=== PATIENT | female | born 1950 | race Caucasian/White ===

== ENCOUNTER 2018-02-22 06:03 | Inpatient (IN) | payer MEDICARE, MEDICAID ==
[2018-02-17 11:15] LABS: BASOPHILS % (AUTO) 0.6 % (0-1); EOSINOPHILS # (AUTO) 0.6 X10'3 (0-0.9); EOSINOPHILS % (AUTO) 8.8 % (0-6); LYMPHOCYTES # (AUTO) 2.4 X10'3 (1.1-4.8); LYMPHOCYTES % (AUTO) 33.3 % (21-51); MEAN CORPUSCULAR HGB CONC 34.1 % (33.0-36.5); MEAN CORPUSCULAR VOLUME 84.9 FL (78-98); MEAN PLATELET VOLUME 8.9 FL (7.4-10.4); MONOCYTES # (AUTO) 0.6 X10'3 (0-0.9); MONOCYTES % (AUTO) 8.6 % (2-12); NEUTROPHILS # (AUTO) 3.6 X10'3 (1.8-7.7); NEUTROPHILS % (AUTO) 48.7 % (42-75); PRE OP HEMATOCRIT 38.9 % (35.0-45.0); PRE OP HEMOGLOBIN 13.3 g/dL (12.0-16.0); PRE OP PLATELET COUNT 242 X10'3 (140-440); RED BLOOD COUNT 4.57 X10'6 (4.20-5.60); RED CELL DISTRIBUTION WIDTH 16.2 % (11.5-14.5)
[2018-02-17 11:24] LABS: PRE OP INR 0.9 INR; PRE OP PROTIME 9.7 SECONDS (9.0-12.0)
[2018-02-17 11:28] LABS: ALBUMIN 3.4 G/DL (3.4-5.0); ALBUMIN/GLOBULIN RATIO 0.9 (1.1-1.5); ALKALINE PHOSPHATASE 105 IU/L (46-116); BLOOD UREA NITROGEN 22 MG/DL (7-18); BUN/CREATININE RATIO 23.2 (6.6-38.0); CALCIUM 9.1 MG/DL (8.5-10.1); CHLORIDE 104 MMOL/L (99-107); CREATININE 0.95 MG/DL (0.40-0.90); HEMOGLOBIN A1C 6.4 % (4.5-6.2); PRE OP ALT 22 U/L (30-65); PRE OP ANION GAP 6 (8-16); PRE OP AST 18 U/L (10-37); PRE OP BILIRUB, TOTAL 0.5 MG/DL (0.0-1.0); PRE OP GLUCOSE 117 MG/DL (70-104); PRE OP POTASSIUM 4.4 MMOL/L (3.4-5.1); PRE OP SODIUM 141 MMOL/L (135-145); TOTAL CARBON DIOXIDE 30.6 MMOL/L (24-32); TOTAL PROTEIN 7.3 G/DL (6.4-8.2); eGFR 59 ML/MIN
[~2018-02-22] VITALS: Ht 170.2 cm; Wt 124.4 kg
[2018-02-22] VITALS (22 sets, daily range): BP systolic 104–157; BP diastolic 47–87
[~2018-02-22 06:03] MED LIST: ARIP5TAB4 PO; ATOR40TA PO; CELE-193 PO; DULO-31 PO; FERR324T4 PO; GABA-532 PO; LISI40TA4 PO; LOSA25TA96 PO; METF500T7 PO; OMEP20TA5 PO; acetaminophen 325mg tablet PO ONE; clindamycin-Cleocin 900mg/D5W 50 ML IV ONE; famotidine 20mg tablet PO ONE; gabapentin 300mg capsule PO ONE; metoclopramide 5 mg/ml inj IV ONE; oxyCODONE SR 10mg (sust. release) tab PO ONE; ringers solution, lacted 1,000 ML IV SCH; tranexamic acid inj. 1,000 MG in normal saline 100ml IV soln 90 ML IV ONE; vancomycin inj 1,500 MG in normal saline 300ml IV soln IV ONE
[2018-02-22] MEDS ORDERED: LIDOcaine 1% (10mg/ml) 2ml vial ONE (06:22)
[2018-02-22] MEDS ORDERED: ceFAZolin 1000mg inj ONE (07:31)
[2018-02-22] MEDS ORDERED: ketorolac trometh. 30mg/ml inj. ONE (07:31)
[2018-02-22] MEDS ORDERED: ROPIVAcaine 0.5% (5mg/ml) 30ml vial ONE ×2 (07:31→09:19)
[2018-02-22] MEDS ORDERED: Thrombin (Bovine) 5,000 unit vial TP ONE (07:31)
[2018-02-22] MEDS ORDERED: morphine 10mg/ml inj. ONE (07:31)
[2018-02-22] MEDS ORDERED: vancomycin 1,000mg inj ONE (07:33)
[2018-02-22] MEDS ORDERED: cloNIDine hcl/PF 100mcg/ml inj ONE (08:23)
[2018-02-22] MEDS ORDERED: midazolam 2 mg/2 ml injection ONE (08:27)
[2018-02-22] MEDS ORDERED: fentaNYL /PF 50mcg/ml 5ml ampule ONE (08:27)
[2018-02-22] MEDS ORDERED: propofol inj 20 ML IV ONE (08:30)
[2018-02-22] MEDS ORDERED: LIDOcaine 2% (20mg/ml) 5ml vial ONE (08:30)
[2018-02-22] MEDS ORDERED: rocuronium 10mg/ml inj IV ONE (08:30)
[2018-02-22] MEDS ORDERED: sevoflurane 250ml liquid IH ONE (08:41)
[2018-02-22] MEDS ORDERED: ondansetron/PF 4mg/2ml inj ONE (08:41)
[2018-02-22] MEDS ORDERED: calcium chloride 100 MG/1 ML inj IV ONE (09:29)
[2018-02-22] MEDS ORDERED: hydrALAZINE 20mg/ml inj. IV ONE (09:48)
[2018-02-22] MEDS ORDERED: ePHEDrine 50MG/ML INJ. ONE (09:48)
[2018-02-22] MEDS ORDERED: phenylephrine 10mg/ml inj. ONE (09:48)
[2018-02-22] MEDS ORDERED: ringers solution, lacted 1,000 ML IV SCH (09:58)
[2018-02-22] MEDS ORDERED: ondansetron/PF 4mg/2ml inj IV PRN ×2 (10:00→11:45)
[2018-02-22] MEDS ORDERED: morphine 4 MG/ML inj SYRINge IV PRN ×2 (10:00)
[2018-02-22] MEDS ORDERED: meperidine/PF 25mg/ml syringe IV PRN ×2 (10:00)
[2018-02-22] MEDS ORDERED: proCHLORperazine 10 MG/2 ml inj IV PRN (10:00)
[2018-02-22] MEDS ORDERED: dexamethasone sod phosphate 4mg/ml inj. ONE (10:03)
[2018-02-22] MEDS ORDERED: fentaNYL/PF 50MCG/1 ML 2ML syringe ONE (10:27)
[2018-02-22] MEDS ORDERED: glycopyrrolate 0.2mg/ml inj ONE (10:58)
[2018-02-22] MEDS ORDERED: neostigmine methylsulfate 1 MG/ML 10ml vial ONE (10:58)
[2018-02-22] MEDS ORDERED: labetalol 5mg/ml 20ml inj. IV ONE (11:42)
[2018-02-22] MEDS ORDERED: diphenhydrAMINE 25mg capsule PO PRN ×2 (11:45)
[2018-02-22] MEDS ORDERED: [UNRECOGNIZED DRUG - OTHER] IV PRN (11:45)
[2018-02-22] MEDS ORDERED: acetaminophen 325mg tablet PO PRN (11:45)
[2018-02-22] MEDS ORDERED: bisacodyl 10mg suppository rectal RC PRN (11:45)
[2018-02-22] MEDS ORDERED: magnesium hydroxide 30ml (MOM) UD suspension PO PRN (11:45)
[2018-02-22] MEDS ORDERED: HYDROmorphone 1 mg/ml syringe IV PRN (11:45)
[2018-02-22] MEDS ORDERED: oxyCODONE IR 5mg (immed. release) tablet PO PRN (11:45)
[2018-02-22] MEDS: meperidine/PF 25mg/ml syringe IV PRN ×2 (12:39→12:59)
[2018-02-22] MEDS: clindamycin 600mg/D5W 50ml 50 ML IV SCH ×2 (14:29→20:06)
[2018-02-22] MEDS: acetaminophen 325mg tablet PO SCH ×3 (14:31→20:04)
[2018-02-22] MEDS: gabapentin 300mg capsule PO SCH ×3 (14:31→20:09)
[2018-02-22] MEDS: potassium cl 20mEq in 1/2 NS 1,000 ML IV SCH ×2 (14:31→19:43)
[2018-02-22] MEDS ORDERED: NORMAL SALINE IV ONE (15:00)
[2018-02-22] MEDS ORDERED: TRANEXAMIC ACID IV ONE (15:00)
[2018-02-22] MEDS: oxyCODONE IR 5mg (immed. release) tablet PO PRN (17:36)
[2018-02-22] MEDS: ferrous sulfate 325mg tablet PO SCH (18:00)
[2018-02-22] MEDS ORDERED: gabapentin 300mg capsule PO SCH (20:00)
[2018-02-22] MEDS: lisinopril 10 MG tablet PO SCH (20:00)
[2018-02-22] MEDS ORDERED: vancomycin/NS 1 GM ADD-VANTAGE 250 ML IV SCH (20:00)
[2018-02-22] MEDS: metFORMIN 500mg tablet PO SCH (20:04)
[2018-02-22] MEDS: duloxetine 30mg CAPSULE.DR PO SCH (20:04)
[2018-02-22] MEDS: losartan 25mg tablet PO SCH (20:04)
[2018-02-22] MEDS: sennosides 8.6mg tablet PO SCH (20:09)
[2018-02-22] MEDS ORDERED: magnesium oxide 400mg tablet PO PRN (21:10)
[2018-02-23] MEDS: oxyCODONE IR 5mg (immed. release) tablet PO PRN ×6 (00:56→21:26)
[2018-02-23 01:59] VITALS: BP 123/59
[2018-02-23] MEDS: potassium cl 20mEq in 1/2 NS 1,000 ML IV SCH ×3 (04:09→21:26)
[2018-02-23] MEDS: clindamycin 600mg/D5W 50ml 50 ML IV SCH (04:18)
[2018-02-23] MEDS: acetaminophen 325mg tablet PO SCH ×4 (04:18→21:03)
[2018-02-23 05:51] LABS: BASOPHILS % (AUTO) 0.3 % (0-1); EOSINOPHILS # (AUTO) 0.1 X10'3 (0-0.9); EOSINOPHILS % (AUTO) 1.5 % (0-6); HEMATOCRIT 32.6 % (35.0-45.0); HEMOGLOBIN 10.8 g/dl (12.0-16.0); LYMPHOCYTES # (AUTO) 1.7 X10'3 (1.1-4.8); LYMPHOCYTES % (AUTO) 18.3 % (21-51); MEAN CORPUSCULAR HEMOGLOBIN 28.6 PG (27.0-31.0); MEAN CORPUSCULAR HGB CONC 33.2 % (33.0-36.5); MEAN CORPUSCULAR VOLUME 86.3 FL (78-98); MEAN PLATELET VOLUME 8.9 FL (7.4-10.4); MONOCYTES # (AUTO) 1.4 X10'3 (0-0.9); MONOCYTES % (AUTO) 14.3 % (2-12); NEUTROPHILS # (AUTO) 6.2 X10'3 (1.8-7.7); NEUTROPHILS % (AUTO) 65.6 % (42-75); PLATELET COUNT 209 X10'3 (140-440); RED BLOOD COUNT 3.78 X10'6 (4.20-5.60); RED CELL DISTRIBUTION WIDTH 16.3 % (11.5-14.5); WHITE BLOOD COUNT 9.4 X10'3 (4.5-11.0)
[2018-02-23 05:53] LABS: ANION GAP 4 (8-16); CHLORIDE 106 MMOL/L (99-107); POTASSIUM 4.8 MMOL/L (3.5-5.1); SODIUM 141 MMOL/L (135-145); TOTAL CARBON DIOXIDE 31.2 MMOL/L (24-32)
[2018-02-23 06:00] VITALS: BP 136/56
[2018-02-23 08:34] LABS: ALANINE AMINOTRANSFERASE 27 U/L (12-78); ALBUMIN 2.6 G/DL (3.4-5.0); ALBUMIN/GLOBULIN RATIO 0.8 (1.1-1.5); ALKALINE PHOSPHATASE 74 IU/L (46-116); BILIRUBIN,TOTAL 0.5 MG/DL (0.1-1.0); BLOOD UREA NITROGEN 14 MG/DL (7-18); BUN/CREATININE RATIO 15.9 (6.6-38.0); CALCIUM 8.1 MG/DL (8.5-10.1); CREATININE 0.88 MG/DL (0.40-0.90); GLUCOSE 130 MG/DL (70-104); MAGNESIUM 2.1 MG/DL (1.5-2.4); eGFR 64 ML/MIN
[2018-02-23] MEDS: pantoprazole 40mg Tablet.DR PO SCH (08:35)
[2018-02-23] MEDS: metFORMIN 500mg tablet PO SCH ×2 (08:35→21:02)
[2018-02-23] MEDS: aripiprazole 5mg tablet PO SCH (08:35)
[2018-02-23] MEDS: duloxetine 30mg CAPSULE.DR PO SCH ×2 (08:35→21:02)
[2018-02-23] MEDS: losartan 25mg tablet PO SCH ×2 (08:35→21:01)
[2018-02-23] MEDS: lisinopril 10 MG tablet PO SCH ×2 (08:37→21:03)
[2018-02-23] MEDS: atorvastatin 10mg tablet PO SCH (08:37)
[2018-02-23] MEDS: gabapentin 300mg capsule PO SCH ×3 (08:37→21:02)
[2018-02-23] MEDS: enoxaparin 40mg/0.4ml syringe SQ SCH (08:38)
[2018-02-23 08:42] LABS: ASPARTATE AMINO TRANSFERASE 26 U/L (10-37)
[2018-02-23] MEDS: ferrous sulfate 325mg tablet PO SCH ×3 (08:52→17:39)
[2018-02-23 10:00] VITALS: BP 130/64
[2018-02-23 16:00] VITALS: BP 119/39
[2018-02-23 18:00] VITALS: BP 126/36
[2018-02-23] MEDS: celeCOXIB 100mg capsule PO SCH (21:02)
[2018-02-23] MEDS: sennosides 8.6mg tablet PO SCH (21:02)
[2018-02-23 22:00] VITALS: BP 158/61
[2018-02-24] MEDS: acetaminophen 325mg tablet PO SCH ×2 (02:00→08:11)
[2018-02-24] MEDS: potassium cl 20mEq in 1/2 NS 1,000 ML IV SCH (03:43)
[2018-02-24] MEDS: oxyCODONE IR 5mg (immed. release) tablet PO PRN ×3 (03:51→20:21)
[2018-02-24 06:00] VITALS: BP 111/47
[2018-02-24 08:08] LABS: HEMATOCRIT 31.1 % (35.0-45.0); HEMOGLOBIN 10.3 g/dl (12.0-16.0); RED BLOOD COUNT 3.59 X10'6 (4.20-5.60); WHITE BLOOD COUNT 11.6 X10'3 (4.5-11.0)
[2018-02-24 08:09] LABS: BASOPHILS # (AUTO) 0.1 X10'3 (0-0.2); BASOPHILS % (AUTO) 0.5 % (0-1); EOSINOPHILS # (AUTO) 0.4 X10'3 (0-0.9); EOSINOPHILS % (AUTO) 3.8 % (0-6); LYMPHOCYTES # (AUTO) 1.9 X10'3 (1.1-4.8); LYMPHOCYTES % (AUTO) 16.7 % (21-51); MEAN CORPUSCULAR HEMOGLOBIN 28.8 PG (27.0-31.0); MEAN CORPUSCULAR HGB CONC 33.3 % (33.0-36.5); MEAN CORPUSCULAR VOLUME 86.6 FL (78-98); MEAN PLATELET VOLUME 9.2 FL (7.4-10.4); MONOCYTES # (AUTO) 1.6 X10'3 (0-0.9); MONOCYTES % (AUTO) 13.6 % (2-12); NEUTROPHILS # (AUTO) 7.6 X10'3 (1.8-7.7); NEUTROPHILS % (AUTO) 65.4 % (42-75); PLATELET COUNT 197 X10'3 (140-440); RED CELL DISTRIBUTION WIDTH 16.3 % (11.5-14.5)
[2018-02-24] MEDS: metFORMIN 500mg tablet PO SCH ×2 (08:10→20:23)
[2018-02-24] MEDS: gabapentin 300mg capsule PO SCH ×3 (08:10→20:23)
[2018-02-24] MEDS: aripiprazole 5mg tablet PO SCH (08:10)
[2018-02-24] MEDS: pantoprazole 40mg Tablet.DR PO SCH (08:10)
[2018-02-24] MEDS: atorvastatin 10mg tablet PO SCH (08:11)
[2018-02-24] MEDS: duloxetine 30mg CAPSULE.DR PO SCH ×2 (08:11→20:23)
[2018-02-24] MEDS: ferrous sulfate 325mg tablet PO SCH ×3 (08:11→19:02)
[2018-02-24] MEDS: lisinopril 10 MG tablet PO SCH ×2 (08:11→20:23)
[2018-02-24] MEDS: celeCOXIB 100mg capsule PO SCH ×2 (08:11→20:23)
[2018-02-24] MEDS: losartan 25mg tablet PO SCH ×2 (08:11→20:23)
[2018-02-24] MEDS: enoxaparin 40mg/0.4ml syringe SQ SCH (08:14)
[2018-02-24 10:00] VITALS: BP 113/29
[2018-02-24] MEDS ORDERED: acetaminophen 325mg tablet PO PRN (11:45)
[2018-02-24 14:39] VITALS: BP 110/60
[2018-02-24 16:09] LABS: CLARITY,URINE Clear (Clear); COLOR,URINE Yellow (Yellow); GLUCOSE, URINE Negative (Neg); KETONES,URINE Negative (Neg); LEUKOCYTE ESTERASE ,URINE Moderate (Neg); NITRITES, URINE Negative (Neg); OCCULT BLOOD,URINE Negative (Neg); PH,URINE 5.5 (4.8-8.0); PROTEIN,URINE Negative (Neg); UROBILINOGEN,URINE 0.2 E.U/dL (0.2-1.0)
[2018-02-24 16:15] LABS: UA COLLECTION TYPE NON-SPECIFIED
[2018-02-24 16:20] LABS: BACTERIA,URINE 1+ /HPF (Neg); MUCUS STRANDS FEW /LPF (Neg); RBC,URINE NONE SEEN /HPF (0-2); SQUAMOUS EPITHELIAL CELL,UR FEW /LPF (FEW); WBC CLUMPS,URINE FEW /HPF (NEGATIVE); YEAST FEW /HPF (NEGATIVE)
[2018-02-24 18:00] VITALS: BP 142/47
[2018-02-24 19:30] VITALS: BP 139/53
[2018-02-24] MEDS: sennosides 8.6mg tablet PO SCH (20:22)
[2018-02-24 22:00] VITALS: BP 108/48
[2018-02-24] MEDS: levoFLOXACIN 500mg tablet PO SCH (23:21)
[2018-02-25 05:54] LABS: BASOPHILS # (AUTO) 0.1 X10'3 (0-0.2); BASOPHILS % (AUTO) 0.8 % (0-1); EOSINOPHILS # (AUTO) 0.4 X10'3 (0-0.9); EOSINOPHILS % (AUTO) 3.9 % (0-6); HEMATOCRIT 33.3 % (35.0-45.0); HEMOGLOBIN 11.1 g/dl (12.0-16.0); LYMPHOCYTES # (AUTO) 1.3 X10'3 (1.1-4.8); LYMPHOCYTES % (AUTO) 11.5 % (21-51); MEAN CORPUSCULAR HEMOGLOBIN 28.9 PG (27.0-31.0); MEAN CORPUSCULAR HGB CONC 33.3 % (33.0-36.5); MEAN CORPUSCULAR VOLUME 86.8 FL (78-98); MEAN PLATELET VOLUME 9.9 FL (7.4-10.4); MONOCYTES # (AUTO) 1.3 X10'3 (0-0.9); MONOCYTES % (AUTO) 11.8 % (2-12); NEUTROPHILS # (AUTO) 8.2 X10'3 (1.8-7.7); PLATELET COUNT 217 X10'3 (140-440); RED BLOOD COUNT 3.84 X10'6 (4.20-5.60); RED CELL DISTRIBUTION WIDTH 16.5 % (11.5-14.5); WHITE BLOOD COUNT 11.3 X10'3 (4.5-11.0)
[2018-02-25 06:00] VITALS: BP 88/64
[2018-02-25] MEDS: oxyCODONE IR 5mg (immed. release) tablet PO PRN (06:07)
[2018-02-25] MEDS: atorvastatin 10mg tablet PO SCH (08:17)
[2018-02-25] MEDS: duloxetine 30mg CAPSULE.DR PO SCH (08:17)
[2018-02-25] MEDS: losartan 25mg tablet PO SCH (08:17)
[2018-02-25] MEDS: celeCOXIB 100mg capsule PO SCH (08:17)
[2018-02-25] MEDS: enoxaparin 40mg/0.4ml syringe SQ SCH (08:17)
[2018-02-25] MEDS: pantoprazole 40mg Tablet.DR PO SCH (08:17)
[2018-02-25] MEDS: gabapentin 300mg capsule PO SCH (08:17)
[2018-02-25] MEDS: aripiprazole 5mg tablet PO SCH (08:17)
[2018-02-25] MEDS: lisinopril 10 MG tablet PO SCH (08:18)
[2018-02-25] MEDS: ferrous sulfate 325mg tablet PO SCH (08:18)
[2018-02-25] MEDS: metFORMIN 500mg tablet PO SCH (08:18)
[2018-02-25 10:00] VITALS: BP 123/19
[2018-02-25 10:15] VITALS: BP 105/70
[2018-02-25] MEDS: levoFLOXACIN 500mg tablet PO SCH (10:34)
[2018-02-25 11:15] LABS: ALANINE AMINOTRANSFERASE 28 U/L (12-78); ALBUMIN 2.3 G/DL (3.4-5.0); ALBUMIN/GLOBULIN RATIO 0.5 (1.1-1.5); ALKALINE PHOSPHATASE 86 IU/L (46-116); ANION GAP 9 (8-16); ASPARTATE AMINO TRANSFERASE 24 U/L (10-37); BILIRUBIN,TOTAL 0.7 MG/DL (0.1-1.0); BLOOD UREA NITROGEN 14 MG/DL (7-18); BUN/CREATININE RATIO 13.5 (6.6-38.0); CALCIUM 8.5 MG/DL (8.5-10.1); CHLORIDE 101 MMOL/L (99-107); CREATININE 1.04 MG/DL (0.40-0.90); GLUCOSE 121 MG/DL (70-104); POTASSIUM 4.1 MMOL/L (3.5-5.1); SODIUM 137 MMOL/L (135-145); TOTAL CARBON DIOXIDE 26.9 MMOL/L (24-32); TOTAL PROTEIN 6.5 G/DL (6.4-8.2); eGFR 53 ML/MIN
[2018-02-25] MEDS ORDERED: lactobacillus rhamnosus 10,000 MMU CELLS/CAPSULE PO SCH (20:00)
== END 2018-02-25 11:10 | DRG 470 ==
LOC: PAS IN 06:03 → EDSTATUS 08:30 → ORTHO 4S 13:30
PROVIDERS: ADMIT Orthopaedic Surgery; ATTEND Family Medicine
PROC: 3E0T3BZ Introduction of Anesthetic Agent into Peripheral Nerves and Plexi, Percutaneous Approach (ICD-10-PCS; 2018-02-22)
PROC: 0SRC069 Replacement of Right Knee Joint with Oxidized Zirconium on Polyethylene Synthetic Substitute, Cemented, Open Approach (ICD-10-PCS; principal; 2018-02-22 08:41)
DX: M17.11 Unilateral primary osteoarthritis, right knee (principal); Z68.41 Body mass index [BMI] 40.0-44.9, adult; I47.1 Supraventricular tachycardia; N39.0 Urinary tract infection, site not specified; D62 Acute posthemorrhagic anemia; E11.9 Type 2 diabetes mellitus without complications; M25.761 Osteophyte, right knee; F32.9 Major depressive disorder, single episode, unspecified; M21.061 Valgus deformity, not elsewhere classified, right knee; E66.01 Morbid (severe) obesity due to excess calories; I10 Essential (primary) hypertension; I48.91 Unspecified atrial fibrillation; Z60.2 Problems related to living alone; Z88.1 Allergy status to other antibiotic agents; Z88.8 Allergy status to other drugs, medicaments and biological substances; Z79.899 Other long term (current) drug therapy; Z79.84 Long term (current) use of oral hypoglycemic drugs
CPT/HCPCS: 0232T; 93306; 36415; 71045; 80053; 81001; 82948; 83036; 83605; 83735; 84439; 84443; 85025; 85610; 85730; 87040; 87070; 87077; 87088; 87186; 93005; 97110; 97116; 97162; 97530; A6255; A6455; A7000; C1713; C1758; C1776; J0360; J0690; J0735; J1100; J1170; J1650; J1885; J2001; J2175; J2250; J2270; J2370; J2405; J2704; J2710; J2765; J2795; J3010; J3370; J3490; J7030; J7120

== ENCOUNTER 2018-03-20 08:33 | Inpatient (IN) | payer MEDICARE, MEDICAID ==
[~2018-03-20] VITALS: Ht 170.2 cm; Wt 122.0 kg
[~2018-03-20 08:33] MED LIST changes: -acetaminophen 325mg tablet PO ONE; -clindamycin-Cleocin 900mg/D5W 50 ML IV ONE; -famotidine 20mg tablet PO ONE; -gabapentin 300mg capsule PO ONE; -metoclopramide 5 mg/ml inj IV ONE; -oxyCODONE SR 10mg (sust. release) tab PO ONE; -ringers solution, lacted 1,000 ML IV SCH; -tranexamic acid inj. 1,000 MG in normal saline 100ml IV soln 90 ML IV ONE; -vancomycin inj 1,500 MG in normal saline 300ml IV soln IV ONE
[2018-03-20] MEDS ORDERED: normal saline 1000ML IV soln IVB ONE (08:45)
[2018-03-20 09:05] LABS: BASOPHILS % (AUTO) 0.2 % (0-1); EOSINOPHILS # (AUTO) 0.1 X10'3 (0-0.9); HEMATOCRIT 27.9 % (35.0-45.0); HEMOGLOBIN 9.3 g/dl (12.0-16.0); LYMPHOCYTES # (AUTO) 1.3 X10'3 (1.1-4.8); LYMPHOCYTES % (AUTO) 11.2 % (21-51); MEAN CORPUSCULAR HEMOGLOBIN 29.1 PG (27.0-31.0); MEAN CORPUSCULAR HGB CONC 33.2 % (33.0-36.5); MEAN CORPUSCULAR VOLUME 87.4 FL (78-98); MEAN PLATELET VOLUME 9.4 FL (7.4-10.4); MONOCYTES # (AUTO) 0.7 X10'3 (0-0.9); MONOCYTES % (AUTO) 5.8 % (2-12); NEUTROPHILS # (AUTO) 9.7 X10'3 (1.8-7.7); NEUTROPHILS % (AUTO) 81.8 % (42-75); PLATELET COUNT 298 X10'3 (140-440); RED BLOOD COUNT 3.19 X10'6 (4.20-5.60); RED CELL DISTRIBUTION WIDTH 16.5 % (11.5-14.5); WHITE BLOOD COUNT 11.8 X10'3 (4.5-11.0)
[2018-03-20 09:16] LABS: ALANINE AMINOTRANSFERASE 13 U/L (12-78); ALBUMIN 2.4 G/DL (3.4-5.0); ALBUMIN/GLOBULIN RATIO 0.8 (1.1-1.5); ALKALINE PHOSPHATASE 90 IU/L (46-116); ANION GAP 10 (8-16); ASPARTATE AMINO TRANSFERASE 14 U/L (10-37); BILIRUBIN,TOTAL 0.4 MG/DL (0.1-1.0); BLOOD UREA NITROGEN 20 MG/DL (7-18); BUN/CREATININE RATIO 17.5 (6.6-38.0); CALCIUM 7.5 MG/DL (8.5-10.1); CHLORIDE 110 MMOL/L (99-107); CREATININE 1.14 MG/DL (0.40-0.90); GLUCOSE 203 MG/DL (70-104); POTASSIUM 3.3 MMOL/L (3.5-5.1); SODIUM 143 MMOL/L (135-145); TOTAL CARBON DIOXIDE 23.4 MMOL/L (24-32); TOTAL PROTEIN 5.6 G/DL (6.4-8.2); eGFR 48 ML/MIN
[2018-03-20] MEDS ORDERED: normal saline 1000ML IV soln IV ONE (09:25)
[2018-03-20 09:47] LABS: MAGNESIUM 1.9 MG/DL (1.5-2.4)
[2018-03-20] MEDS ORDERED: iohexol 350MG/ML 100ml bottle IV ONE (09:50)
[2018-03-20 09:55] LABS: CLARITY,URINE CLOUDY (Clear); COLOR,URINE YELLOW (Yellow); GLUCOSE, URINE 100 mg/dl (Neg); KETONES,URINE TRACE mg/dl (Neg); LEUKOCYTE ESTERASE ,URINE NEGATIVE (Neg); NITRITES, URINE NEGATIVE (Neg); OCCULT BLOOD,URINE MODERATE (Neg); PROTEIN,URINE >=300 mg/dl (Neg); UROBILINOGEN,URINE 0.2 E.U/dL (0.2-1.0)
[2018-03-20 09:57] LABS: UA COLLECTION TYPE FOLEY CATH
[2018-03-20 10:06] LABS: WBC,URINE 0-4 /HPF (0-4)
[2018-03-20 10:07] LABS: BACTERIA,URINE 4+ /HPF (Neg); SQUAMOUS EPITHELIAL CELL,UR FEW /LPF (FEW); TRANSITIONAL EPI CELLS,URINE FEW /HPF; WBC CLUMPS,URINE FEW /HPF (NEGATIVE)
[2018-03-20] MEDS ORDERED: magnesium 1gm/100ml D5W IVPB 100 ML IV PRN (12:20)
[2018-03-20] MEDS ORDERED: ondansetron/PF 4mg/2ml inj IV PRN (12:20)
[2018-03-20] MEDS ORDERED: magnesium Cl slow-release 64mg tablet PO PRN (12:20)
[2018-03-20] MEDS ORDERED: potassium Cl 40MEQ/NS 500ml 500 ML IV PRN ×4 (12:20→15:30)
[2018-03-20] MEDS ORDERED: potassium Cl 20 mEq SR tablet PO PRN ×4 (12:20→15:30)
[2018-03-20] MEDS ORDERED: magnesium 4gm in 100ml NS 100 ML IV PRN (12:20)
[2018-03-20 14:23] VITALS: BP 110/64
[2018-03-20] MEDS: normal saline 1000ml 1,000 ML IV SCH ×2 (14:34→23:12)
[2018-03-20] MEDS ORDERED: MESSAGE TO PHARMACY PO ONE (15:30)
[2018-03-20] MEDS ORDERED: glucagon, human recombinant 1mg kit SUBCUT PRN (15:30)
[2018-03-20] MEDS ORDERED: insulin Lispro (HumaLOG) vial - multi-dose SQ SCH (15:30)
[2018-03-20] MEDS ORDERED: dextrose 50%-water 50ml dispensing syringe IV PRN ×2 (15:30)
[2018-03-20] MEDS ORDERED: dextrose ORAL solution 15 GM/59 ML bottle PO PRN ×2 (15:30)
[2018-03-20 20:00] VITALS: BP 131/53
[2018-03-20] MEDS: insulin glargine (Lantus) pen - multi-dose SQ SCH (20:53)
[2018-03-20] MEDS: acetaminophen 325mg tablet PO PRN (23:10)
[2018-03-21] VITALS: BP_SYST 131; BP_DIAS 54; BP_DIAS 59
[2018-03-21 05:26] LABS: BASOPHILS % (AUTO) 0.6 % (0-1); EOSINOPHILS # (AUTO) 0.2 X10'3 (0-0.9); EOSINOPHILS % (AUTO) 3.4 % (0-6); HEMOGLOBIN 8.4 g/dl (12.0-16.0); LYMPHOCYTES # (AUTO) 2.2 X10'3 (1.1-4.8); LYMPHOCYTES % (AUTO) 29.7 % (21-51); MEAN CORPUSCULAR HEMOGLOBIN 29.5 PG (27.0-31.0); MEAN CORPUSCULAR HGB CONC 33.8 % (33.0-36.5); MEAN CORPUSCULAR VOLUME 87.3 FL (78-98); MEAN PLATELET VOLUME 9.7 FL (7.4-10.4); MONOCYTES # (AUTO) 0.8 X10'3 (0-0.9); MONOCYTES % (AUTO) 10.7 % (2-12); NEUTROPHILS % (AUTO) 55.6 % (42-75); PLATELET COUNT 223 X10'3 (140-440); RED BLOOD COUNT 2.86 X10'6 (4.20-5.60); RED CELL DISTRIBUTION WIDTH 16.5 % (11.5-14.5); WHITE BLOOD COUNT 7.3 X10'3 (4.5-11.0)
[2018-03-21 05:56] LABS: ALBUMIN 2.4 G/DL (3.4-5.0); ANION GAP 7 (8-16); BLOOD UREA NITROGEN 17 MG/DL (7-18); BUN/CREATININE RATIO 19.1 (6.6-38.0); CALCIUM 8.2 MG/DL (8.5-10.1); CHLORIDE 110 MMOL/L (99-107); CREATININE 0.89 MG/DL (0.40-0.90); GLUCOSE 120 MG/DL (70-104); POTASSIUM 4.3 MMOL/L (3.5-5.1); SODIUM 143 MMOL/L (135-145); TOTAL CARBON DIOXIDE 25.7 MMOL/L (24-32); eGFR 64 ML/MIN
[2018-03-21 08:00] VITALS: BP_SYST 128; BP_SYST 129; BP_SYST 135; BP_DIAS 54; BP_DIAS 60; BP_DIAS 67
[2018-03-21] MEDS: K and/or MAG REPLACEMENT MC SCH (08:00)
[2018-03-21 09:04] LABS: % IRON SATURATION 14 % (11-46); IRON 36 UG/DL (49-151); TOTAL IRON BINDING CAPACITY 264 UG/DL (259-388)
[2018-03-21] MEDS ORDERED: MESSAGE TO NURSING PO NR (10:00)
[2018-03-21 11:00] VITALS: BP 130/58
[2018-03-21 11:42] LABS: OCCULT BLOOD STOOL NEGATIVE (Neg)
[2018-03-21] MEDS: normal saline 1000ml 1,000 ML IV SCH ×2 (14:23→20:50)
[2018-03-21] MEDS: ferrous sulfate 325mg tablet PO SCH ×2 (14:26→16:55)
[2018-03-21 20:00] VITALS: BP_SYST 132; BP_SYST 134; BP_DIAS 48; BP_DIAS 59
[2018-03-21] MEDS: celeCOXIB 100mg capsule PO SCH (20:39)
[2018-03-21] MEDS: duloxetine 30mg CAPSULE.DR PO SCH (20:40)
[2018-03-21] MEDS: diatr meglu/diatrizoate 30ml oral sol.-(3 dose) bottle PO SCH (20:40)
[2018-03-21] MEDS: insulin glargine (Lantus) pen - multi-dose SQ SCH (20:42)
[2018-03-21] MEDS: acetaminophen 325mg tablet PO PRN (21:56)
[2018-03-22] VITALS: BP 132/50
[2018-03-22] MEDS: normal saline 1000ml 1,000 ML IV SCH (01:36)
[2018-03-22 04:54] LABS: BASOPHILS % (AUTO) 0.7 % (0-1); EOSINOPHILS # (AUTO) 0.3 X10'3 (0-0.9); EOSINOPHILS % (AUTO) 3.8 % (0-6); HEMATOCRIT 24.4 % (35.0-45.0); HEMOGLOBIN 8.1 g/dl (12.0-16.0); LYMPHOCYTES # (AUTO) 2.1 X10'3 (1.1-4.8); LYMPHOCYTES % (AUTO) 31.5 % (21-51); MEAN CORPUSCULAR HEMOGLOBIN 28.7 PG (27.0-31.0); MEAN CORPUSCULAR VOLUME 87.1 FL (78-98); MEAN PLATELET VOLUME 9.7 FL (7.4-10.4); MONOCYTES # (AUTO) 0.8 X10'3 (0-0.9); MONOCYTES % (AUTO) 11.7 % (2-12); NEUTROPHILS # (AUTO) 3.5 X10'3 (1.8-7.7); NEUTROPHILS % (AUTO) 52.3 % (42-75); PLATELET COUNT 193 X10'3 (140-440); RED CELL DISTRIBUTION WIDTH 16.8 % (11.5-14.5); WHITE BLOOD COUNT 6.6 X10'3 (4.5-11.0)
[2018-03-22 05:09] LABS: ALBUMIN 2.4 G/DL (3.4-5.0); ANION GAP 6 (8-16); BLOOD UREA NITROGEN 14 MG/DL (7-18); BUN/CREATININE RATIO 15.7 (6.6-38.0); CHLORIDE 108 MMOL/L (99-107); CREATININE 0.89 MG/DL (0.40-0.90); GLUCOSE 116 MG/DL (70-104); POTASSIUM 4.1 MMOL/L (3.5-5.1); SODIUM 143 MMOL/L (135-145); TOTAL CARBON DIOXIDE 29.2 MMOL/L (24-32); eGFR 64 ML/MIN
[2018-03-22 07:14] VITALS: BP_SYST 110; BP_SYST 140; BP_SYST 141; BP_DIAS 37; BP_DIAS 40; BP_DIAS 58
[2018-03-22] MEDS: aripiprazole 5mg tablet PO SCH (07:26)
[2018-03-22] MEDS: atorvastatin 10mg tablet PO SCH (07:26)
[2018-03-22] MEDS: duloxetine 30mg CAPSULE.DR PO SCH ×2 (07:26→20:09)
[2018-03-22] MEDS: diatr meglu/diatrizoate 30ml oral sol.-(3 dose) bottle PO SCH ×2 (07:26→09:01)
[2018-03-22] MEDS: celeCOXIB 100mg capsule PO SCH ×2 (07:26→20:08)
[2018-03-22] MEDS: acetaminophen 325mg tablet PO PRN ×2 (07:27→20:09)
[2018-03-22] MEDS: pantoprazole 40mg Tablet.DR PO SCH (07:27)
[2018-03-22] MEDS: ferrous sulfate 325mg tablet PO SCH ×3 (07:28→18:20)
[2018-03-22] MEDS: K and/or MAG REPLACEMENT MC SCH (08:00)
[2018-03-22 12:31] VITALS: BP 125/59
[2018-03-22 20:00] VITALS: BP_SYST 137; BP_SYST 138; BP_SYST 147; BP_DIAS 53; BP_DIAS 63; BP_DIAS 73; BP_DIAS 76
[2018-03-22] MEDS: insulin glargine (Lantus) pen - multi-dose SQ SCH (21:00)
[2018-03-23] VITALS: BP 129/57
[2018-03-23 05:16] LABS: BASOPHILS % (AUTO) 0.8 % (0-1); EOSINOPHILS # (AUTO) 0.4 X10'3 (0-0.9); EOSINOPHILS % (AUTO) 6.1 % (0-6); HEMATOCRIT 25.8 % (35.0-45.0); HEMOGLOBIN 8.4 g/dl (12.0-16.0); LYMPHOCYTES # (AUTO) 1.5 X10'3 (1.1-4.8); LYMPHOCYTES % (AUTO) 24.2 % (21-51); MEAN CORPUSCULAR HEMOGLOBIN 28.6 PG (27.0-31.0); MEAN CORPUSCULAR HGB CONC 32.5 % (33.0-36.5); MEAN PLATELET VOLUME 9.1 FL (7.4-10.4); MONOCYTES # (AUTO) 0.7 X10'3 (0-0.9); MONOCYTES % (AUTO) 10.5 % (2-12); NEUTROPHILS # (AUTO) 3.7 X10'3 (1.8-7.7); NEUTROPHILS % (AUTO) 58.4 % (42-75); PLATELET COUNT 201 X10'3 (140-440); RED BLOOD COUNT 2.94 X10'6 (4.20-5.60); RED CELL DISTRIBUTION WIDTH 16.5 % (11.5-14.5); WHITE BLOOD COUNT 6.3 X10'3 (4.5-11.0)
[2018-03-23 05:48] LABS: ALBUMIN 2.6 G/DL (3.4-5.0); ANION GAP 6 (8-16); BLOOD UREA NITROGEN 10 MG/DL (7-18); BUN/CREATININE RATIO 12.7 (6.6-38.0); CALCIUM 8.8 MG/DL (8.5-10.1); CHLORIDE 106 MMOL/L (99-107); CREATININE 0.79 MG/DL (0.40-0.90); GLUCOSE 122 MG/DL (70-104); POTASSIUM 3.9 MMOL/L (3.5-5.1); SODIUM 142 MMOL/L (135-145); TOTAL CARBON DIOXIDE 29.9 MMOL/L (24-32); eGFR 73 ML/MIN
[2018-03-23 07:41] VITALS: BP 129/53
[2018-03-23] MEDS: celeCOXIB 100mg capsule PO SCH (07:57)
[2018-03-23] MEDS: aripiprazole 5mg tablet PO SCH (07:57)
[2018-03-23] MEDS: atorvastatin 10mg tablet PO SCH (07:57)
[2018-03-23] MEDS: duloxetine 30mg CAPSULE.DR PO SCH (07:57)
[2018-03-23] MEDS: ferrous sulfate 325mg tablet PO SCH ×2 (07:57→12:56)
[2018-03-23] MEDS: pantoprazole 40mg Tablet.DR PO SCH (07:57)
[2018-03-23 08:00] VITALS: BP_SYST 129; BP_SYST 139; BP_SYST 143; BP_DIAS 53; BP_DIAS 67; BP_DIAS 72
[2018-03-23] MEDS: K and/or MAG REPLACEMENT MC SCH (08:00)
[2018-03-23 11:00] VITALS: BP 143/56
== END 2018-03-23 15:30 | DRG 315 ==
LOC: ER 08:33 → ED HOLD 12:18 → OBSVTOIN 12:18 → SUR 3N 14:05
PROVIDERS: ADMIT Internal Medicine; ATTEND Internal Medicine
PROC: B3201ZZ Computerized Tomography (CT Scan) of Thoracic Aorta using Low Osmolar Contrast (ICD-10-PCS; principal; 2018-03-20)
DX: I95.9 Hypotension, unspecified (principal); Z68.41 Body mass index [BMI] 40.0-44.9, adult; R55 Syncope and collapse; E86.0 Dehydration; M79.7 Fibromyalgia; E11.9 Type 2 diabetes mellitus without complications; E78.5 Hyperlipidemia, unspecified; E66.9 Obesity, unspecified; I10 Essential (primary) hypertension; W18.39XA Other fall on same level, initial encounter; S30.1XXA Contusion of abdominal wall, initial encounter; D63.8 Anemia in other chronic diseases classified elsewhere; F32.9 Major depressive disorder, single episode, unspecified; G89.29 Other chronic pain; M19.90 Unspecified osteoarthritis, unspecified site; M54.9 Dorsalgia, unspecified; Z96.643 Presence of artificial hip joint, bilateral; Z96.651 Presence of right artificial knee joint; Z98.84 Bariatric surgery status; Z90.710 Acquired absence of both cervix and uterus; Z88.8 Allergy status to other drugs, medicaments and biological substances; Z79.899 Other long term (current) drug therapy; Z79.84 Long term (current) use of oral hypoglycemic drugs; Y93.89 Activity, other specified; Y92.098 Other place in other non-institutional residence as the place of occurrence of the external cause; Y99.8 Other external cause status
CPT/HCPCS: 36415; 70450; 71045; 71275; 74176; 80048; 80053; 81001; 82272; 82948; 83540; 83550; 83605; 83735; 83880; 84145; 84484; 85025; 87040; 87070; 87088; 93005; 93880; 96360; 96361; 97110; 97116; 97161; 97530; 99285; A6258; C1758; J1815; J2405; J7030; Q9963; Q9967

== ENCOUNTER 2019-05-09 08:32 | Inpatient (IN) | payer MEDICARE, MEDICAID ==
[2019-05-01 16:14] LABS: BASOPHILS # (AUTO) 0.1 X10'3 (0-0.2); BASOPHILS % (AUTO) 1.1 % (0-1); EOSINOPHILS # (AUTO) 0.5 X10'3 (0-0.9); EOSINOPHILS % (AUTO) 5.8 % (0-6); LYMPHOCYTES # (AUTO) 2.5 X10'3 (1.1-4.8); LYMPHOCYTES % (AUTO) 29.9 % (21-51); MEAN CORPUSCULAR HEMOGLOBIN 30.9 PG (27.0-31.0); MEAN CORPUSCULAR HGB CONC 33.5 g/dL (33.0-36.5); MEAN CORPUSCULAR VOLUME 92.3 FL (78-98); MEAN PLATELET VOLUME 9.2 FL (7.4-10.4); MONOCYTES # (AUTO) 0.7 X10'3 (0-0.9); MONOCYTES % (AUTO) 8.4 % (2-12); NEUTROPHILS # (AUTO) 4.6 X10'3 (1.8-7.7); NEUTROPHILS % (AUTO) 54.8 % (42-75); PRE OP HEMATOCRIT 44.2 % (35.0-45.0); PRE OP HEMOGLOBIN 14.8 g/dL (12.0-16.0); PRE OP PLATELET COUNT 248 X10'3 (140-440); RED BLOOD COUNT 4.79 X10'6 (4.20-5.60); RED CELL DISTRIBUTION WIDTH 13.8 % (11.5-14.5)
[2019-05-01 16:40] LABS: ALKALINE PHOSPHATASE 94 IU/L (46-116); BLOOD UREA NITROGEN 24 MG/DL (7-18); BUN/CREATININE RATIO 28.6 (6.6-38.0); CALCIUM 9.5 MG/DL (8.5-10.1); CHLORIDE 106 MMOL/L (99-107); CREATININE 0.84 MG/DL (0.40-0.90); PRE OP ALT 29 U/L (30-65); PRE OP ANION GAP 11 (8-16); PRE OP AST 32 U/L (10-37); PRE OP BILIRUB, TOTAL 0.5 MG/DL (0.0-1.0); PRE OP GLUCOSE 117 MG/DL (70-104); PRE OP SODIUM 145 MMOL/L (135-145); TOTAL CARBON DIOXIDE 28.2 MMOL/L (24-32); TOTAL PROTEIN 7.9 G/DL (6.4-8.2); eGFR 68 ML/MIN
[2019-05-09] VITALS (16 sets, daily range): BP systolic 102–145; BP diastolic 35–83
[~2019-05-09] VITALS: Ht 170.2 cm; Wt 133.1 kg
[~2019-05-09 08:32] MED LIST changes: +ACET-812 PO; -ARIP5TAB4 PO; +LISI10TA4 PO; -LISI40TA4 PO; -LOSA25TA96 PO; +MAGN400C PO; +METF500T20 PO; -METF500T7 PO; +MULT-955 PO; +clindamycin-Cleocin 900mg/D5W 50 ML IV ONE; +famotidine 20mg tablet PO ONE; +ringers solution, lacted 1,000 ML IV SCH; +vancomycin inj 1,500 MG in normal saline 300ml IV soln IV ONE
[2019-05-09] MEDS ORDERED: acetaminophen 325mg tablet PO ONE (09:28)
[2019-05-09] MEDS ORDERED: gabapentin 300mg capsule PO ONE (09:28)
[2019-05-09] MEDS ORDERED: oxyCODONE SR 10mg (sust. release) tab -2 tabs (20mg) PO ONE (09:28)
[2019-05-09] MEDS ORDERED: metoclopramide 5 mg/ml inj IV ONE (09:28)
[2019-05-09] MEDS ORDERED: tranexamic acid inj. 1,000 MG in normal saline 100 ML IV ONE (09:28)
[2019-05-09] MEDS ORDERED: tetracaine 1% (10mg/ml) pres. free inj. ONE (12:13)
[2019-05-09] MEDS ORDERED: MIDAZolam 1mg/ml 10ml vial ONE (12:17)
[2019-05-09] MEDS ORDERED: fentaNYL/PF 50MCG/1 ML 2ML syringe ONE (12:17)
[2019-05-09] MEDS ORDERED: ROPIVAcaine 0.5% (5mg/ml) 30ml vial ONE (12:17)
[2019-05-09] MEDS ORDERED: ringers solution, lacted 1,000 ML IV SCH (13:06)
[2019-05-09] MEDS ORDERED: fentaNYL/PF 50MCG/1 ML 2ML syringe IV PRN ×2 (13:10)
[2019-05-09] MEDS ORDERED: ondansetron/PF 4mg/2ml inj IV PRN ×2 (13:10→14:35)
[2019-05-09] MEDS ORDERED: enalaprilat dihydrate 2.5mg/2ml vial IV PRN (13:10)
[2019-05-09] MEDS ORDERED: morphine 4 MG/ML inj SYRINge IV PRN ×2 (13:10)
[2019-05-09] MEDS ORDERED: hydrALAZINE 20mg/ml inj. IV PRN (13:10)
[2019-05-09] MEDS ORDERED: acetaminophen 325mg tablet PO PRN (14:35)
[2019-05-09] MEDS ORDERED: HYDROmorphone 1 mg/ml syringe IV PRN (14:35)
[2019-05-09] MEDS ORDERED: bisacodyl 10mg suppository rectal RC PRN (14:35)
[2019-05-09] MEDS ORDERED: diphenhydrAMINE 25mg capsule PO PRN (14:35)
[2019-05-09] MEDS ORDERED: oxyCODONE IR 5mg (immed. release) tablet PO PRN (14:35)
[2019-05-09] MEDS ORDERED: HYDROmorphone inj. 0.5 MG/0.5 ML DISP.SYRIN IV PRN (14:35)
[2019-05-09] MEDS ORDERED: magnesium hydroxide 30ml (MOM) UD suspension PO PRN (14:35)
--- NOTE | 2019-05-09 14:50 | NUR ---
Received from OR via ORTHO BED WITH HICASSIE, accompanied by Anesthesiologist RAAD and report given by Anesthesiolgist. PATIENT WITH 20G PIV IN LEFT UE RUNNING LR AT 100. DENIES PAIN AT THIS TIME. SENSATION LEVEL AT T-10 2' SPINAL ANESTHESIA. ) DORSALIS PEDIS PRESENT TO RIGHT FOOT. KNEE WRAP AND POWDER PACK PRESENT. HINGED KNEE BRACE ON. Addendum: 05/09/19 at 1507 by Charly Valdez RN, RN Amended: Links added.
--- NOTE | 2019-05-09 15:15 | NUR ---
BLOOD GLUCOSE IN RR IS 115 Addendum: 05/09/19 at 1516 by Charly Valdez RN RN Amended: Links added.
[2019-05-09] MEDS ORDERED: ATOR10TA70 PO (15:27)
--- NOTE | 2019-05-09 15:29 | NUR ---
RECEIVED REPORT FROM KATIE SCHAEFFER IN RECOVERY
--- NOTE | 2019-05-09 15:30 | NUR ---
PT ARRIVED ON FLOOR IN ORTHO BED AWAKE
--- NOTE | 2019-05-09 15:50 | NUR ---
ALL CRITERIA FOR TRANSFER TO THE FLOOR HAS BEEN ACHIEVED. VSS. BED LOW, CALL LIGHT AND VS. SET IN PLACE. RN PRESENT TO ACCEPT CARE. PATIENT RESTING COMFORTABLY IN BED. BELONGINGS SENT WITH PATIENT. DRESSINGS CDI. Addendum: 05/09/19 at 1558 by Charly Valdez RN RN Amended: Links added.
[2019-05-09] MEDS ORDERED: acetaminophen 325mg tablet PO SCH (16:00)
[2019-05-09] MEDS: gabapentin 300mg capsule PO SCH ×2 (16:31→20:42)
[2019-05-09] MEDS: potassium cl 20mEq in 1/2 NS 1,000 ML IV SCH (16:31)
--- NOTE | 2019-05-09 18:17 | NUR ---
GAVE REPORT TO KATIE BARAJAS
[2019-05-09] MEDS ORDERED: vancomycin/NS 1 GM ADD-VANTAGE 250 ML IV SCH (20:00)
[2019-05-09] MEDS ORDERED: magnesium oxide 400mg tablet PO SCH (20:00)
[2019-05-09] MEDS: acetaminophen 325mg tablet PO SCH (20:41)
[2019-05-09] MEDS: celeCOXIB 100mg capsule PO SCH (20:41)
[2019-05-09] MEDS: metFORMIN 500mg tablet PO SCH (20:42)
[2019-05-09] MEDS: sennosides 8.6mg tablet PO SCH (20:42)
[2019-05-09] MEDS: oxyCODONE IR 5mg (immed. release) tablet PO PRN (20:43)
[2019-05-09] MEDS ORDERED: gabapentin 300mg capsule PO SCH ×2 (21:00)
[2019-05-10] MEDS: potassium cl 20mEq in 1/2 NS 1,000 ML IV SCH ×4 (01:36→22:32)
[2019-05-10] MEDS: acetaminophen 325mg tablet PO SCH ×4 (01:41→20:21)
[2019-05-10] MEDS: oxyCODONE IR 5mg (immed. release) tablet PO PRN ×3 (01:42→14:57)
[2019-05-10 02:00] VITALS: BP 118/53
[2019-05-10] MEDS: diphenhydrAMINE 25mg capsule PO PRN ×2 (02:16→15:00)
[2019-05-10 06:02] LABS: BASOPHILS % (AUTO) 0.5 % (0-1); EOSINOPHILS # (AUTO) 0.1 X10'3 (0-0.9); EOSINOPHILS % (AUTO) 0.9 % (0-6); HEMATOCRIT 36.4 % (35.0-45.0); HEMOGLOBIN 12.3 g/dl (12.0-16.0); LYMPHOCYTES # (AUTO) 1.6 X10'3 (1.1-4.8); LYMPHOCYTES % (AUTO) 16.2 % (21-51); MEAN CORPUSCULAR HEMOGLOBIN 31.2 PG (27.0-31.0); MEAN CORPUSCULAR HGB CONC 33.9 g/dL (33.0-36.5); MEAN CORPUSCULAR VOLUME 92.2 FL (78-98); MEAN PLATELET VOLUME 8.5 FL (7.4-10.4); MONOCYTES # (AUTO) 1.1 X10'3 (0-0.9); MONOCYTES % (AUTO) 11.4 % (2-12); NEUTROPHILS # (AUTO) 6.9 X10'3 (1.8-7.7); PLATELET COUNT 218 X10'3 (140-440); RED BLOOD COUNT 3.95 X10'6 (4.20-5.60); RED CELL DISTRIBUTION WIDTH 14.1 % (11.5-14.5); WHITE BLOOD COUNT 9.7 X10'3 (4.5-11.0)
[2019-05-10 06:10] VITALS: BP 123/68
--- NOTE | 2019-05-10 06:29 | NUR ---
Problems reprioritized. Patient report given, questions answered & plan of care reviewed with KATIE CINTRON.
--- NOTE | 2019-05-10 06:30 | NUR ---
I HAVE RECEIVED PATIENT REPORT FROM JENN WILSON
[2019-05-10 07:07] LABS: ANION GAP 7 (8-16); CHLORIDE 107 MMOL/L (99-107); POTASSIUM 4.9 MMOL/L (3.5-5.1); SODIUM 143 MMOL/L (135-145); TOTAL CARBON DIOXIDE 28.7 MMOL/L (24-32)
[2019-05-10] MEDS ORDERED: ferrous sulfate 325mg tablet PO SCH (08:00)
[2019-05-10] MEDS ORDERED: gabapentin 300mg capsule PO SCH (08:00)
[2019-05-10] MEDS: atorvastatin 10mg tablet PO SCH (08:11)
[2019-05-10] MEDS: pantoprazole 40mg Tablet.DR PO SCH (08:11)
[2019-05-10] MEDS: multivitamins, therapeutics tablet PO SCH (08:11)
[2019-05-10] MEDS: enoxaparin 40mg/0.4ml syringe SQ SCH (08:11)
[2019-05-10] MEDS: metFORMIN 500mg tablet PO SCH ×2 (08:11→20:20)
[2019-05-10] MEDS: duloxetine 30mg CAPSULE.DR PO SCH (08:12)
[2019-05-10] MEDS: gabapentin 300mg capsule PO SCH ×3 (08:12→20:21)
[2019-05-10] MEDS: celeCOXIB 100mg capsule PO SCH ×2 (08:12→20:20)
[2019-05-10] MEDS: lisinopril 10 MG tablet PO SCH (08:15)
[2019-05-10] MEDS: ferrous sulfate 325mg tablet PO SCH (09:34)
[2019-05-10] MEDS: magnesium oxide 400mg tablet PO SCH ×2 (09:34→20:22)
[2019-05-10 10:00] VITALS: BP 115/60
[2019-05-10 18:00] VITALS: BP 124/38
--- NOTE | 2019-05-10 18:24 | NUR ---
patient report given to Olga Huston and Annalee VO
[2019-05-10] MEDS: sennosides 8.6mg tablet PO SCH (20:21)
[2019-05-10 21:00] VITALS: BP 123/49
[2019-05-11] MEDS: acetaminophen 325mg tablet PO SCH ×3 (01:09→13:43)
[2019-05-11] MEDS: oxyCODONE IR 5mg (immed. release) tablet PO PRN ×4 (01:10→21:57)
--- NOTE | 2019-05-11 02:58 | NUR ---
reviewed and agree with SRN assessment
[2019-05-11 06:00] VITALS: BP 126/40
--- NOTE | 2019-05-11 06:11 | NUR ---
Problems reprioritized. Patient report given, questions answered & plan of care reviewed with KATIE Rosario.
[2019-05-11] MEDS: potassium cl 20mEq in 1/2 NS 1,000 ML IV SCH (06:32)
--- NOTE | 2019-05-11 06:55 | NUR ---
Patient in room ORTHO 4013. I have received report from Olga WILSON and had the opportunity to ask questions and assume patient care.
[2019-05-11 06:58] LABS: BASOPHILS # (AUTO) 0.1 X10'3 (0-0.2); BASOPHILS % (AUTO) 0.7 % (0-1); EOSINOPHILS # (AUTO) 0.5 X10'3 (0-0.9); EOSINOPHILS % (AUTO) 6.4 % (0-6); HEMATOCRIT 33.3 % (35.0-45.0); HEMOGLOBIN 11.3 g/dl (12.0-16.0); LYMPHOCYTES # (AUTO) 2.1 X10'3 (1.1-4.8); LYMPHOCYTES % (AUTO) 27.4 % (21-51); MEAN CORPUSCULAR HEMOGLOBIN 31.4 PG (27.0-31.0); MEAN CORPUSCULAR VOLUME 92.4 FL (78-98); MEAN PLATELET VOLUME 8.8 FL (7.4-10.4); MONOCYTES # (AUTO) 1.2 X10'3 (0-0.9); MONOCYTES % (AUTO) 15.4 % (2-12); NEUTROPHILS # (AUTO) 3.9 X10'3 (1.8-7.7); NEUTROPHILS % (AUTO) 50.1 % (42-75); PLATELET COUNT 184 X10'3 (140-440); RED CELL DISTRIBUTION WIDTH 13.6 % (11.5-14.5); WHITE BLOOD COUNT 7.7 X10'3 (4.5-11.0)
[2019-05-11 08:00] LABS: TOTAL CELLS COUNTED 100
[2019-05-11 08:02] LABS: PLATELET ESTIMATE NORMAL
[2019-05-11] MEDS: pantoprazole 40mg Tablet.DR PO SCH (08:22)
[2019-05-11] MEDS: metFORMIN 500mg tablet PO SCH ×2 (08:23→20:10)
[2019-05-11] MEDS: atorvastatin 10mg tablet PO SCH (08:27)
[2019-05-11] MEDS: celeCOXIB 100mg capsule PO SCH ×2 (08:27→20:10)
[2019-05-11] MEDS: multivitamins, therapeutics tablet PO SCH (08:28)
[2019-05-11] MEDS: magnesium oxide 400mg tablet PO SCH ×2 (08:28→20:10)
[2019-05-11] MEDS: duloxetine 30mg CAPSULE.DR PO SCH (08:28)
[2019-05-11] MEDS: ferrous sulfate 325mg tablet PO SCH (08:29)
[2019-05-11] MEDS: lisinopril 10 MG tablet PO SCH (08:29)
[2019-05-11] MEDS: gabapentin 300mg capsule PO SCH ×3 (08:29→20:15)
[2019-05-11] MEDS: enoxaparin 40mg/0.4ml syringe SQ SCH (08:30)
[2019-05-11 10:00] VITALS: BP 111/73
--- NOTE | 2019-05-11 12:10 | NUR ---
DM consult: Pt with hx T2DM, last A1c was 6.4 taken 02/17/18, pending new lab draw this visit. Will continue to follow and monitor need for DM education pending lab results. Addendum: 05/11/19 at [address] Amended: Links added.
--- NOTE | 2019-05-11 14:26 | NUR ---
F/u: Patient's A1c is 6.1, DM education not warranted at this time. Will continue to follow. Addendum: 05/11/19 at [address] Amended: Links added.
[2019-05-11] MEDS ORDERED: acetaminophen 325mg tablet PO PRN (14:35)
[2019-05-11 18:00] VITALS: BP 144/62
--- NOTE | 2019-05-11 18:17 | NUR ---
Problems reprioritized. Patient report given, questions answered & plan of care reviewed with Olga WILSON and student Jayde.
[2019-05-11] MEDS: sennosides 8.6mg tablet PO SCH (20:10)
[2019-05-11 22:00] VITALS: BP 157/41
[2019-05-12] MEDS: oxyCODONE IR 5mg (immed. release) tablet PO PRN ×3 (02:23→14:12)
--- NOTE | 2019-05-12 02:51 | NUR ---
Reviewed and agree with SRN assessment.
[2019-05-12 06:00] VITALS: BP 139/56
--- NOTE | 2019-05-12 06:29 | NUR ---
Problems reprioritized. Patient report given, questions answered & plan of care reviewed with KATIE Rosario.
--- NOTE | 2019-05-12 06:46 | NUR ---
Patient in room ORTHO 4013. I have received report from Olga WILSON and had the opportunity to ask questions and assume patient care.
[2019-05-12 07:15] LABS: BASOPHILS # (AUTO) 0.1 X10'3 (0-0.2); BASOPHILS % (AUTO) 0.6 % (0-1); EOSINOPHILS # (AUTO) 0.6 X10'3 (0-0.9); EOSINOPHILS % (AUTO) 7.6 % (0-6); HEMATOCRIT 31.5 % (35.0-45.0); HEMOGLOBIN 10.9 g/dl (12.0-16.0); LYMPHOCYTES # (AUTO) 2.3 X10'3 (1.1-4.8); LYMPHOCYTES % (AUTO) 28.5 % (21-51); MEAN CORPUSCULAR HEMOGLOBIN 31.7 PG (27.0-31.0); MEAN CORPUSCULAR HGB CONC 34.6 g/dL (33.0-36.5); MEAN CORPUSCULAR VOLUME 91.7 FL (78-98); MEAN PLATELET VOLUME 9.2 FL (7.4-10.4); MONOCYTES % (AUTO) 13.2 % (2-12); NEUTROPHILS % (AUTO) 50.1 % (42-75); PLATELET COUNT 191 X10'3 (140-440); RED BLOOD COUNT 3.43 X10'6 (4.20-5.60); WHITE BLOOD COUNT 7.9 X10'3 (4.5-11.0)
[2019-05-12] MEDS: metFORMIN 500mg tablet PO SCH (07:39)
[2019-05-12] MEDS: gabapentin 300mg capsule PO SCH (07:39)
[2019-05-12] MEDS: pantoprazole 40mg Tablet.DR PO SCH (07:40)
[2019-05-12] MEDS: multivitamins, therapeutics tablet PO SCH (07:40)
[2019-05-12] MEDS: duloxetine 30mg CAPSULE.DR PO SCH (07:40)
[2019-05-12] MEDS: atorvastatin 10mg tablet PO SCH (07:40)
[2019-05-12] MEDS: ferrous sulfate 325mg tablet PO SCH (07:40)
[2019-05-12] MEDS: celeCOXIB 100mg capsule PO SCH (07:40)
[2019-05-12] MEDS: magnesium oxide 400mg tablet PO SCH (07:40)
[2019-05-12] MEDS: lisinopril 10 MG tablet PO SCH (07:41)
[2019-05-12] MEDS: enoxaparin 40mg/0.4ml syringe SQ SCH (07:42)
[2019-05-12 10:00] VITALS: BP 169/57
--- NOTE | 2019-05-12 14:50 | NUR ---
safe DC with [facility] personnel. All personal items with patient.
== END 2019-05-12 14:30 | DRG 488 ==
LOC: PRE-OP 08:32 → ORTHO 4S 14:42
PROVIDERS: ADMIT Orthopaedic Surgery; ATTEND Orthopaedic Surgery
PROC: 3E0T3BZ Introduction of Anesthetic Agent into Peripheral Nerves and Plexi, Percutaneous Approach (ICD-10-PCS; 2019-05-09)
PROC: 0MRN0KZ Replacement of Right Knee Bursa and Ligament with Nonautologous Tissue Substitute, Open Approach (ICD-10-PCS; principal; 2019-05-09 12:15)
DX: M22.01 Recurrent dislocation of patella, right knee (principal); Z68.42 Body mass index [BMI] 45.0-49.9, adult; D62 Acute posthemorrhagic anemia; I10 Essential (primary) hypertension; F32.9 Major depressive disorder, single episode, unspecified; M19.90 Unspecified osteoarthritis, unspecified site; E66.01 Morbid (severe) obesity due to excess calories; E11.9 Type 2 diabetes mellitus without complications; K21.9 Gastro-esophageal reflux disease without esophagitis; M79.7 Fibromyalgia; Z88.1 Allergy status to other antibiotic agents; Z79.899 Other long term (current) drug therapy; Z90.710 Acquired absence of both cervix and uterus; Z98.51 Tubal ligation status; Z98.1 Arthrodesis status
CPT/HCPCS: 36415; 80051; 80053; 82948; 83036; 85025; 93005; 97110; 97116; 97162; 97530; A4215; A4618; A6449; A7000; C1713; G0378; J1170; J1650; J2250; J2765; J2795; J3010; J3370; J3480; J3490; J7120; Q0163